=== PATIENT | female | born 1930 | race Caucasian/White ===

== ENCOUNTER 2016-09-25 13:51 | Inpatient (IN) ==
[2016-09-25] MEDS ORDERED: DILAUDID IV ONE (15:35)
[2016-09-25] MEDS ORDERED: ZOFRAN IV ONE (15:35)
[2016-09-25] MEDS ORDERED: NORCO-7.5 PO ONE (15:43)
--- NOTE | 2016-09-25 16:49 | Diag Imaging Result Doc PS360 ---
EXAM: PELVIS W/O CONTRAST INDICATION: fall TECHNIQUE: COMPARISON: None. FINDINGS: The bones are osteopenic. There are fractures involving the superior and inferior pubic rami on the left with mild displacement. There is a subtle nondisplaced fracture involving the left sacral ala. There is no discrete femoral fracture. Review of the surrounding soft tissues reveals diverticulosis coli and atherosclerotic disease. IMPRESSION: Fractures of the inferior and superior pubic rami on the left and a subtle nondisplaced fracture of the left sacral ala. Electronically signed by Álvaro Graham 09/25/2016 4:47 PM
--- NOTE | 2016-09-25 16:52 | Diag Imaging Result Doc PS360 ---
EXAM: HIP 1 VIEW LEFT INDICATION: fall TECHNIQUE: One view COMPARISON: None. FINDINGS: This study is underpenetrated and is limited given that there is only one view. There is questionable mild irregularity at the inferior pubic ramus on the left. I suppose a subtle fracture is possible. No other discrete fractures are identified on this limited single image. The surrounding soft tissues are essentially unremarkable. IMPRESSION: Questionable fracture at the left inferior pubic ramus on this limited study. Electronically signed by Álvaro Graham 09/25/2016 4:50 PM
--- NOTE | 2016-09-25 17:16 | PROVIDER DOCUMENTATION ---
This chart was entered by Jase Washington Scriblaith, acting as scribe for Abdulaziz Gruber MD. HPI-Musculoskeletal Pain/Inj - GENERAL Chief Complaint: Hip Pain Stated Complaint: FALL Time Seen by Provider: 09/25/16 14:15 Source: patient, family - HX OF PRESENT ILLNESS-MUSKULOSKELTAL Nature of Presenting Problem: pt is a 86 y/o F that presents post fall last pm with left hip pain and pain and difficulty ambulating. Denies any other injury. Quality of Pain: reports: cramping Severity in ED: moderate Onset/Duration: abrupt, last night Timing: still present, constant Modifying Factors: worse with: movement, palpation Locality of Occurance: Home Similar Symptoms Previously?: No Recently seen or treated by another doctor?: No - FALL INJURY Location of Pain/Injury: reports: lower extremity (left hip) Pain Radiation: reports: no radiation Reason for Fall: reports: lost balance Symptoms prior to fall:: reports: none Loss of Consciousness: no loss of consciousness Injury Associated Symptoms: reports: joint pain, unable to bear weight, trouble walking. denies: back/neck pain, dizziness, shortness of breath Review of Systems - Adult - REVIEW OF SYSTEMS - ADULT Constitutional: reports: no symptoms reported Eyes: denies: decreased vision, blurred vision, double vision Ears, Nose, Mouth & Throat: denies: ear discharge, epistaxis, mouth/dental pain , mouth swelling Cardiovascular: denies: chest pain, palpitations, syncope Respiratory: denies: hemoptysis, shortness of breath Gastrointestinal: denies: abdominal pain, nausea, vomiting Genitourinary: reports: no symptoms reported Musculoskeletal: reports: joint pain. denies: back pain, neck pain Integumentary: reports: no symptoms reported Neurological: reports: no symptoms reported Psychiatric: reports: no symptoms reported Endocrine: reports: no symptoms reported Hematologic/Lymphatic: reports: no symptoms reported Allergic/Immunologic: reports: no symptoms reported All Other Systems: Reviewed and Negative Past History - Adult - PAST MEDICAL HISTORY-ADULT Review of Records: reports: Old Records Reviewed, Nursing Assessment Review, Medications Reviewed Endocrine/Immune: reports: thyroid disorder - PRIOR SURGERIES/PROCEDURES Surgical/Procedure History: reports: hysterectomy - IMMUNIZATION STATUS Childhood Immunizations: See Nurse Assessment Flu Vaccine: See Nurse Assessment - FAMILY HISTORY Family History: reviewed, not pertinent - SOCIAL HISTORY Smoking: non-smoker Living Situation: family Physical Exam-Injury Related - Physical Exam-Injury Related Initial Vital Signs Reviewed: Yes General Appearance: alert, no apparent distress Eyes: PERRL/EOMI, pink conjunctivae Head, Ears, Nose, Mouth & Throat: normocephalic/atraumatic, moist mucous membranes, normal ENT inspection Neck: full range of motion, normal inspection Respiratory: chest non-tender, lungs clear, normal breath sounds, no respiratory distress, no accessory muscle use Cardiovascular: regular rate, rhythm, no edema, no murmur Abdominal Exam: normal bowel sounds, non tender, soft Extremity: normal capillary refill, tenderness (left hip), other (decrease ROM to left leg) Integumentary: normal color, warm/dry Neurologic: seasonal sales associate II-XII nml as tested, no motor/sensory deficits Psych/Mental Status: normal mood/affect, normal thought content, normal thought process, oriented x 3 Progress - PLAN OF CARE/RESULTS Progress/Plan/Lab Results: Vital Signs - 8 hr 09/25/16 14:12 Temperature 98.7 F Pulse Rate 94 H Respiratory Rate 18 Blood Pressure 180/97 O2 Sat by Pulse Oximetry 92 L Orders Category Date Time Status HIP 1 VIEW LEFT [RAD] Stat Exams 09/25/16 14:39 Completed PELVIS W/O CONTRAST [CT] Stat Exams 09/25/16 16:15 Completed AMYLASE [CHEM] Stat Lab 09/25/16 17:08 Uncollected CBC WITH DIFF [HEME] Stat Lab 09/25/16 17:08 Uncollected COMPREHENSIVE METABOLIC PANEL [CHEM] Stat Lab 09/25/16 17:08 Uncollected LIPASE [CHEM] Stat Lab 09/25/16 17:08 Uncollected Hydrocodone/APAP 7.5 mg/325 mg [Lanark-7.5] Med 09/25/16 15:43 Discontinued 1 each PO NOW ONE Hydromorphone [Dilaudid] Med 09/25/16 15:35 Discontinued 0.5 mg IV NOW ONE Ondansetron [Zofran] Med 09/25/16 15:35 Discontinued 4 mg IV NOW ONE EKG [EKG] Stat Ther 09/25/16 17:08 Ordered 1616-ct of pelvis ordered - XRAY 1 XRAY: Left XRAY Study: Hip Impression: Abnormal XRAY Interpretation: ? fx left pubic rami - CT/MRI 1 CT Study: Pelvis Impression: Abnormal CT Results: fx of inferior and superior rami on Left and subtle fx L sacral ala - CONSULTS/PCP/HOSPITALIST Notification #1 *Consult/PCP/Hospitalist*: Time Discussed: 17:10 Consult Disposition: Will see in ED, Admit Departure - Departure Date of Disposition Decision: 09/25/16 Time of Disposition Decision: 17:11 DIAGNOSIS: Fall, Pelvic fracture, Intractable pain Disposition: ADMITTED INPATIENT 09 Certified Medical Emergency: Emergent Condition: Stable Referrals and Follow-Ups: Rupesh Mccallum MD [Primary Care Provider] - - Critical Care Note This patient required my direct & personal management of CC.: No Attestation - Physician/ RICHA Attestation The physician spent face to face time with patient:: Yes Advanced Practice Provider documentation review:: The physician spent face to face time with this patient and agrees with all MLP documentation, treatment, and medical decision making by the MLP. See provider notes for further information. This chart was documented by the indicated scribe, (Jase Washington, Zak) and accurately reflects the services I performed and decisions made by me, Abdulaziz Gruber MD, as attested by the provider's signature.
[2016-09-25 17:53] LABS: ALLEN TEST YES; BE -2.1 mmoll (-3.0-3.0); BLOOD TYPE ARTERIAL; DRAW SITE L RADIAL; METHB 1.4 % (0.0-1.5); MODALITY ROOM AIR; O2(CT) 17.2 mL/dL (15.0-23.0); PCO2(98.6) 27 mmHg (35-45); PO2(98.6) 61 mmHg (60-100); SAMPLE BLOOD; SAO2 95.9 % (95.0-100.0); THB 13.2 g/dL (11.5-17.4); pH(98.6) 7.48 (7.35-7.45)
[2016-09-25 18:05] LABS: HEMATOCRIT 36.2 % (37.0-47.0); HEMOGLOBIN 12.6 g/dL (12.0-16.0); MCH 29.7 PG (27-31); MCHC 34.8 g/dL (33-37); MCV 85.4 FL (81-99); MPV 10.1 FL (7.4-10.4); RBC 4.24 XMIL (4.2-5.4)
[2016-09-25 18:29] LABS: AGAP 12; ALBUMIN 3.8 g/dL (3.5-5.0); ALKALINE PHOSPHATASE 125 U/L (32-104); BUN 9 mg/dL (8-22); CHLORIDE 91 mmol/L (98-107); COSMO 255; GOT 14 U/L (10-30); GPT 10 U/L (10-36); POTASSIUM 3.6 mmol/L (3.5-5.1); SODIUM 127 mmol/L (136-145); TCO2 24 mmol/L (25-35); TOTAL BILIRUBIN 0.63 mg/dL (0.20-1.00); TOTAL PROTEIN 7.2 g/dL (6.3-8.3)
--- NOTE | 2016-09-25 18:57 | HISTORY AND PHYSICAL ---
CHIEF COMPLAINT: Hip pain. HISTORY OF PRESENT ILLNESS: Ms. Ella Pérez is an 86-year-old lady with a history of mild cognitive impairment and hypothyroidism who is well known to me. Last night she fell while trying to use the bedside commode. She was with complaint of left hip pain. X-ray demonstrated a questionable fracture at the left inferior pubic ramus. A CT scan of the pelvis demonstrated fractures of the inferior and superior pubic ramus on the left and nondisplaced fracture of the left sacral ala. The family reported that over the course of the day she had increasing pain and was unable to perform any weightbearing exercises. She was unable to ambulate or get out of bed independently. PAST MEDICAL HISTORY: As above. PAST SURGICAL HISTORY: Hysterectomy. ALLERGIES: No known drug allergies. FAMILY HISTORY: Noncontributory. SOCIAL HISTORY: She denies the use of tobacco, alcohol, or illicit drugs. MEDICATIONS: Levothyroxine 50 mcg daily, folic acid 1 mg daily. REVIEW OF SYSTEMS: General: She denies any recent weight gain or weight loss. HEENT: She will wears glasses. She is hard of hearing. CARDIOVASCULAR: No chest pain, palpitations, or anginal equivalents. Pulmonary: No shortness of breath, PND or orthopnea. GI: No reflux, dysphagia, melena, hematochezia, change in bowel habits, or rectal bleeding. Endocrine: No polyuria, no polydipsia. No cold or heat intolerance. Skin: No easy bruisability. : No leakage of urine with coughing or laughing. Neurologic: No migraines or seizures. PHYSICAL EXAMINATION: GENERAL: This is an elderly, frail. 86-year-old, lady in no apparent distress. VITAL SIGNS: Temperature 98.7 degrees, pulse 94, respiratory rate 18, blood pressure 180/97, O2 saturation 92% on room air. HEENT: Fundi with sharp discs and vessels. Pupils equal, round, reactive to light. Extraocular eye movements intact. TMs without bullae. NECK: Supple. No masses, JVD or bruits. CARDIOVASCULAR: Regular rate and rhythm. LUNGS: Clear. ABDOMEN: Soft, nontender, with active bowel sounds. No hepatosplenomegaly. No abdominal bruits. EXTREMITIES: Without edema. NEUROLOGIC: She is alert and easily arousable. She is oriented to name, place, and time. She answers questions appropriately. She has normal tone and strength in the upper lower extremities. DTRs are 2+ and symmetric in the upper extremities. Cranial nerves are intact. ASSESSMENT AND PLAN: 1. Multiple pelvic fractures. She is unable to perform any weightbearing activity. I am going to admit her to [facility] for pain management. I will begin morphine 1 mg with Phenergan 12.5 mg IV q.3 hours p.r.n. pain. We will place a Ibrahim catheter. The fact that she has pelvic fractures would suggest that she has underlying osteoporosis. We will check renal function and serum calcium to see if she potentially would benefit from medicines like Forteo. We certainly could use medicines like Miacalcin to speed the healing of the fractures. We will consult Orthopedic Surgery in the morning for evaluation, we will consult Physical Therapy. 2. Hypothyroidism. Clinically she is euthyroid. We will continue levothyroxine 50 mcg daily. Given the patient's clinical presentation and comorbid conditions, it is evident that she is incapable of performing weightbearing exercises. It would not be safe to attempt to treat her as an outpatient. I believe that she will be in the hospital for at least 2 midnights and I will, therefore, place her in inpatient status. We will consult social media director to look for rehab bed placement. We will begin Lovenox 40 mg subcutaneously daily for DVT prophylaxis. cc: Lyndon Mccallum MD
[2016-09-25] MEDS ORDERED: SODIUM CHLORIDE 0.9% INJ PRN (19:34)
[2016-09-25] MEDS ORDERED: ZOFRAN IV PRN (19:34)
[2016-09-25] MEDS: LOVENOX SUBQ SCH (20:09)
[2016-09-25] MEDS: SEPTRA DS PO SCH (20:09)
[2016-09-26] MEDS: TYLENOL PO PRN ×2 (07:54→13:40)
[2016-09-26] MEDS: SYNTHROID PO SCH (07:54)
--- NOTE | 2016-09-26 08:46 | PROGRESS NOTE ---
DATE: 09/26/2016 SUBJECTIVE: Ms. Pérez was admitted to [facility] with multiple pelvic fractures. There are fractures involving the superior and inferior pubic rami on the left with mild displacement. There is a subtle nondisplaced fracture involving the left sacral ala. There is no discrete femoral fracture. The bones are osteopenic. She only has significant pelvic pain when she attempts to shift in bed. She is with complaint of nausea and vomiting this morning. The family reports that she has been having increasing reflux and sour brash and burping after meals. OBJECTIVE: Temperature 98.3 degrees, pulse 81, respirations 16, BP 154/79. CV: Regular rate and rhythm. Lungs clear. Abdomen soft, nontender, with active bowel sounds. ASSESSMENT AND PLAN: 1. Multiple pelvic fractures. We will consult Orthopedic Surgery for evaluation. We will consult Physical Therapy to begin range of motion exercises. We will arrange for social economist to obtain rehab placement. We will continue the Dilaudid. We will continue the morphine as needed for pain. I will check a serum calcium, PTH, and a protein electrophoresis. I suspect the fractures are related to osteopenia rather than a true pathologic fracture. 2. Nausea and vomiting. I will give her normal saline at 50 mL/hour x1 L and begin pantoprazole 40 mg IV daily. We will treat the nausea on a p.r.n. basis with Zofran. cc: Lyndon Mccallum MD
--- NOTE | 2016-09-26 09:42 | Diag Imaging Result Doc PS360 ---
EXAM: CHEST-PORTABLE HISTORY: hypoxia TECHNIQUE: Portable flat AP COMPARISON: None. FINDINGS: The lungs are well expanded. Mild increased interstitial markings. No consolidation. No pleural effusions identified. The heart is mildly prominent. IMPRESSION: Questionable tiny infiltrates or pulmonary edema. Follow-up PA and lateral recommended. Electronically signed by Marbin Arce 09/26/2016 9:40 AM
[2016-09-26] MEDS: PROTONIX IV SCH ×2 (10:46→15:37)
[2016-09-26] MEDS: FOLIC ACID PO SCH (10:46)
[2016-09-26] MEDS: SODIUM CHLORIDE 0.9% INJ SCH ×2 (10:46→15:37)
[2016-09-26] MEDS: SEPTRA DS PO SCH ×2 (10:51→20:30)
--- NOTE | 2016-09-26 11:36 | CONSULTATION ---
DATE OF CONSULTATION: 09/26/2016 REASON FOR CONSULTATION: Pubic rami fracture. HISTORY OF PRESENT ILLNESS: Ms. Pérez is an 86-year-old white female who comes in after sustaining a fall 2 nights ago when she was trying to use her bedside commode. She was brought to the emergency department and images were obtained which revealed left superior and inferior pubic rami fracture and a left sacral ala fracture, and we were asked to further evaluate. PAST MEDICAL HISTORY: Mild cognitive impairment, hypothyroidism, and UTIs. PAST SURGICAL HISTORY: Hysterectomy. ALLERGIES: No known drug allergies. FAMILY HISTORY: Noncontributory. MEDICATIONS: Levothyroxine and folic acid. SOCIAL HISTORY: She denies the use of tobacco, alcohol, or illicit drugs. PRIMARY CARE PROVIDER: Dr. Mccallum. REVIEW OF SYSTEMS: A 10-point review of systems was performed and the patient answered all negative except for what was listed in the history of present illness. PHYSICAL EXAMINATION: General: The patient is awake. She is lying in bed. She is alert and oriented, and able to answer questions appropriately. HEENT: Head is normocephalic, atraumatic. Neck: Supple. Heart: Regular rate and rhythm. Lungs: Clear to auscultation bilaterally. Abdomen: Round and nondistended. Bowel sounds are present. It is nontender. Neurologic: She discerned soft touch to the affected extremity. Musculoskeletal: Left hip: She has some pain with palpation of the left hip, but there is no deformity or ecchymosis noted. She has good range of motion of her hip and her legs are neurovascularly intact bilaterally. She has 2+ pedal pulses bilaterally. ASSESSMENT: Left superior and inferior pubic rami fracture and left sacral ala fracture, which are nondisplaced. PLAN: Her fractures are in a stable fracture pattern and they are nondisplaced , so there is no surgical intervention necessary. We will have her weightbearing as tolerated and will have pain control as necessary. Dictated by PAYAM Sotelo for Ricky Bedolla MD cc: PAYAM Sotelo MD M. Neel Roberts, MD [facility]OSPITALTracee
[2016-09-26] MEDS: MORPHINE IV PRN (15:34)
[2016-09-26] MEDS: NS 1,000 ML IV SCH (15:36)
[2016-09-26] MEDS: LOVENOX SUBQ SCH (20:30)
[2016-09-27] MEDS: MORPHINE IV PRN ×4 (02:44→22:14)
[2016-09-27] MEDS: SYNTHROID PO SCH (06:42)
--- NOTE | 2016-09-27 09:33 | Diag Imaging Result Doc PS360 ---
CHEST-PORTABLE - 09/27/2016 INDICATION: HYPOXIA TECHNIQUE: COMPARISON: 09/25/2016 FINDINGS: The patient is significantly rotated. There is mild cardiomegaly and pulmonary vascular congestion. No definite infiltrates. IMPRESSION: Cardiomegaly and pulmonary vascular congestion. Electronically signed by Case Maravilla 09/27/2016 9:31 AM
[2016-09-27] MEDS ORDERED: LASIX IV ONE (09:59)
[2016-09-27 10:16] LABS: HEMOGLOBIN 11.5 g/dL (12.0-16.0); MCHC 34.8 g/dL (33-37); MCV 86.2 FL (81-99); MPV 10.2 FL (7.4-10.4); RBC 3.83 XMIL (4.2-5.4)
[2016-09-27 10:22] LABS: AGAP 11; BUN 12 mg/dL (8-22); CALCIUM 8.6 mg/dL (8.8-10.2); CHLORIDE 93 mmol/L (98-107); COSMO 250; POTASSIUM 4.3 mmol/L (3.5-5.1); SODIUM 124 mmol/L (136-145); TCO2 20 mmol/L (25-35)
--- NOTE | 2016-09-27 11:01 | PROGRESS NOTE ---
DATE: 09/27/2016 SUBJECTIVE: Ms. Pérez fell and sustained multiple pelvic fractures. She has pelvic pain when she shifts in bed or tries to perform any sort of physical activity. Dr. Ethan Bedolla saw her in consultation and felt that she was not a candidate for surgery. CT scan demonstrated osteopenia of the bones, but by definition she has osteoporosis because of the fractures. We did perform a workup to rule out causes of bone loss. She did have a normal serum calcium. Her PTH was elevated at 78. Her vitamin D hydroxy level was deficient at 19.8. She has taken Evista and Fosamax in the past. She is awake and easily arousable. She is tolerating a bland diet without nausea, vomiting, or abdominal pain. OBJECTIVE: Vital signs: Temperature 97.6 degrees, Pulse 84, respiratory rate 16, blood pressure 122/86. Cardiovascular: Regular rate and rhythm. Lungs: Clear. Abdomen: Soft, nontender, with active bowel sounds. ASSESSMENT AND PLAN: 1. Multiple pelvic fractures. We will begin Miacalcin 200 international units 1 spray to the nose daily and alternate sides. We will continue physical therapy. We will consult [facility] for rehab placement at [facility]. 2. Secondary hyperparathyroidism. She does have an elevated PTH of 78. Her vitamin D level is deficient. Serum calcium is normal. I will began vitamin D 2000 units p.o. daily and supplemental calcium. I will recheck a PTH, serum calcium, and 25-hydroxyvitamin D level in 3 months. cc: Lyndon Mccallum MD
[2016-09-27] MEDS: FOLIC ACID PO SCH (11:24)
[2016-09-27] MEDS: SEPTRA DS PO SCH ×2 (11:25→21:51)
[2016-09-27] MEDS: PROTONIX IV SCH ×2 (11:26→11:29)
[2016-09-27] MEDS: SODIUM CHLORIDE 0.9% INJ SCH ×2 (11:26→11:28)
[2016-09-27] MEDS: FORTICAL NAS SCH (11:28)
[2016-09-27] MEDS: NS 1,000 ML IV SCH (15:40)
[2016-09-27] MEDS: VITAMIN D PO SCH (15:40)
[2016-09-27] MEDS: CALTRATE 600 PO SCH ×2 (15:48→21:51)
[2016-09-27] MEDS: LOVENOX SUBQ SCH (21:51)
[2016-09-28] MEDS: MORPHINE IV PRN ×3 (01:33→22:10)
[2016-09-28] MEDS: PHENERGAN IV PRN ×2 (01:33→08:32)
[2016-09-28] MEDS: SYNTHROID PO SCH (06:37)
[2016-09-28] MEDS: PROTONIX IV SCH (08:31)
[2016-09-28] MEDS: CALTRATE 600 PO SCH ×2 (08:32→22:10)
[2016-09-28] MEDS: SODIUM CHLORIDE 0.9% INJ SCH (08:32)
[2016-09-28] MEDS: FORTICAL NAS SCH (08:32)
[2016-09-28] MEDS: VITAMIN D PO SCH (08:33)
[2016-09-28] MEDS: FOLIC ACID PO SCH (08:33)
[2016-09-28] MEDS: SEPTRA DS PO SCH ×2 (08:34→22:10)
--- NOTE | 2016-09-28 10:12 | PROGRESS NOTE ---
DATE: 09/28/2016 SUBJECTIVE: Ella Pérez is an 86-year-old female who had a fall and has left superior and inferior rami fractures and a nondisplaced sacral ala fracture. She has no new complaints. Her pain is improving and is much more tolerable. OBJECTIVE: Genera: She is a well-developed, well-nourished female. She is alert, oriented, and cooperative with the exam. Musculoskeletal: Her pelvis is stable. Her leg is neurovascularly intact. ASSESSMENT: Stable left pelvis fracture. PLAN: She will be found transferred to rehab the 1st part of the week per Dr. Mccallum. I will see her back in the office in 1 month for followup x-rays. I will be available as needed. cc: MD Lyndon Falk MD
[2016-09-28] MEDS: NS 1,000 ML IV SCH (13:30)
--- NOTE | 2016-09-28 13:44 | PROGRESS NOTE ---
DATE: 09/28/2016 SUBJECTIVE: Mrs. Pérez was admitted to [facility] following a fall. A CT scan of the pelvis demonstrated fractures of the inferior and superior pubic rami on the left and a subtle nondisplaced fracture of the left sacral ala. She continues to have persistent pain with movement in bed or attempting to sit up or rotating. She does not have any pain at rest. As part of the workup for the pelvic fractures, she was noted to have a normal serum calcium. A PTH was elevated at 78. Her vitamin D hydroxy level was deficient at 19.8. This morning, Mrs. Pérez is more sleepy and drowsy and difficult to arouse. Upon waking up, she could tell me her name and that she was at [facility]. She had gotten morphine at 2 o'clock this morning and had been sleeping since that time. OBJECTIVE: Vital signs: Temperature 98.0 degrees, pulse 119, respiratory rate 14, BP 107/72. CV: Tachycardic, regular S1, S2. Lungs: Clear. Abdomen: Soft, nontender, with active bowel sounds. LABORATORY DATA: CBC demonstrated a white count of 6.62, hemoglobin 11.5, hematocrit 33 and a platelet count of 202,000. BMP demonstrated the following. Sodium 124, potassium 4.3, chloride 93, CO2 20, BUN 12, creatinine 0.8. ASSESSMENT AND PLAN: 1. Multiple pelvic fractures secondary to secondary hyperparathyroidism. We will continue physical therapy and are awaiting rehab placement. Dr. Bedolla did not feel that she was a surgical candidate. We will continue aggressive management of the underlying hyperparathyroidism with vitamin BD supplementations, supplemental calcium and Miacalcin. 1. Hyponatremia. I am going to check a serum osmolality, urine osmolality and a urine sodium. Given her tachycardia and lower blood pressure, she appears to be somewhat hypovolemic. I will begin normal saline at 75 mL/hour and I will recheck a serum sodium later this afternoon. cc: Lyndon Mccallum MD
[2016-09-28] MEDS: LOVENOX SUBQ SCH (22:10)
[2016-09-29] MEDS: NS 1,000 ML IV SCH (04:29)
[2016-09-29 06:22] LABS: AGAP 12; BUN 14 mg/dL (8-22); CALCIUM 7.8 mg/dL (8.8-10.2); CHLORIDE 96 mmol/L (98-107); COSMO 259; POTASSIUM 4.5 mmol/L (3.5-5.1); SODIUM 129 mmol/L (136-145); TCO2 21 mmol/L (25-35)
[2016-09-29] MEDS: SYNTHROID PO SCH (06:34)
[2016-09-29] MEDS ORDERED: LASIX IV ONE (08:57)
--- NOTE | 2016-09-29 09:15 | PROGRESS NOTE ---
DATE: 09/29/2016 SUBJECTIVE: Ms. Pérez seems much more alert and interactive this morning. Her serum sodium has jumped from 124-129. Her chest x-ray showed a small amount of interstitial edema. No lung malignancies were noted. We gave her additional Lasix and her serum sodium has jumped from 124- 129. She seems much more alert this morning. She continues with pelvic pain with any sort of movement. She is making slow progress with physical therapy. OBJECTIVE: Vital Signs: Temperature 97.8 degrees, pulse 88, respirations 14, BP 150/73. CV: Regular rate and rhythm. Lungs: Clear. Abdomen: Soft, nontender, with active bowel sounds. ASSESSMENT AND PLAN: 1. Pelvic fractures. We will continue pain management and physical therapy. We are awaiting a intermediate rehab bed at [facility]. 2. Secondary hyperparathyroidism. We will continue supplemental calcium and vitamin D, and recheck a vitamin D and PTH in 3 months. 3. Hyponatremia. I believe that she was mildly volume overloaded. I do not believe that she has syndrome of inappropriate antidiuretic hormone secretion. Her urine sodium was 96. The urine osmolality was 95. We will continue salt and fluid restricted diet and give her additional Lasix. I will recheck a BMP in the morning. cc: Lyndon Mccallum MD
[2016-09-29] MEDS: FORTICAL NAS SCH (09:26)
[2016-09-29] MEDS: CALTRATE 600 PO SCH ×2 (09:27→20:16)
[2016-09-29] MEDS: SEPTRA DS PO SCH ×2 (09:27→20:17)
[2016-09-29] MEDS: VITAMIN D PO SCH (09:27)
[2016-09-29] MEDS: PROTONIX IV SCH (09:27)
[2016-09-29] MEDS: FOLIC ACID PO SCH (09:28)
[2016-09-29] MEDS: SODIUM CHLORIDE 0.9% INJ SCH (09:28)
[2016-09-29] MEDS: TYLENOL PO PRN ×2 (10:20→20:17)
[2016-09-29] MEDS: LOVENOX SUBQ SCH (20:17)
[2016-09-30] MEDS: SYNTHROID PO SCH ×2 (05:55→06:26)
[2016-09-30 06:31] LABS: AGAP 12; BUN 12 mg/dL (8-22); CALCIUM 8.3 mg/dL (8.8-10.2); CHLORIDE 91 mmol/L (98-107); COSMO 251; POTASSIUM 4.1 mmol/L (3.5-5.1); SODIUM 125 mmol/L (136-145); TCO2 22 mmol/L (25-35)
[2016-09-30] MEDS ORDERED: SALINE LOCK IV FLUID XX ONE (08:39)
[2016-09-30] MEDS: FOLIC ACID PO SCH (08:53)
[2016-09-30] MEDS: PROTONIX IV SCH (08:53)
[2016-09-30] MEDS: FORTICAL NAS SCH (08:53)
[2016-09-30] MEDS: CALTRATE 600 PO SCH ×2 (08:53→21:38)
[2016-09-30] MEDS: SEPTRA DS PO SCH (08:53)
[2016-09-30] MEDS: SODIUM CHLORIDE 0.9% INJ SCH (08:53)
[2016-09-30] MEDS: VITAMIN D PO SCH (08:53)
--- NOTE | 2016-09-30 10:15 | PROGRESS NOTE ---
DATE: 09/30/2016 SUBJECTIVE: Ms. Pérez was admitted to [facility] with multiple pelvic fractures. She is making slow response with nonweightbearing exercises with physical therapy. Physical therapy saw her on 09/29/2016. She was noted to have moderate assist with transfers. She could not tolerate even weightbearing exercises. On admission to the hospital, she was noted to have hyponatremia. Her serum sodium was 124. Her chest x-ray showed increased interstitial edema. We diuresed her with Lasix. Her serum sodium increased to 129. Her serum sodium this morning was 125. Urine studies, given that she seemed to be mildly volume overloaded, were not consistent with SIADH. She does have some baseline confusion. Her family reports that she is nearly back to her baseline neurologically. She has some confusion and disorientation. There have been no seizure activity. OBJECTIVE: Vital Signs: Temperature 98.1 degrees, pulse 97, respirations 20, BP 146/77. CV: Regular rate and rhythm without murmur. Lungs clear. Abdomen soft, nontender, with active bowel sounds. ASSESSMENT AND PLAN: 1. Pelvic fractures. We will continue nonweightbearing physical therapy and pain management. She will need short-term rehab, and they do have a bed at [facility] today. We felt that the etiology of the fractures was secondary hyperparathyroidism. She had a normal calcium. Her vitamin D was low. Her PTH was elevated. We will continue supplemental calcium and vitamin D and recheck a vitamin D level and PTH as an outpatient in 3 months. 2. Hyponatremia. She seems to be more euvolemic today. Her serum sodium has dropped from 129- 125. I am going to place her on salt and fluid restricted diet. I am going to recheck urine studies to screen for SIADH. If her urine studies are still abnormal, we will begin Samsca and consult nephrology. cc: Lyndon Mccallum MD
[2016-09-30] MEDS: TYLENOL PO PRN ×2 (11:15→19:55)
[2016-09-30] MEDS ORDERED: SAMSCA PO ONE (12:42)
--- NOTE | 2016-09-30 13:24 | PROGRESS NOTE ---
DATE: 09/30/2016 Mrs. Pérez has persistent hyponatremia. Clinically, she appears euvolemic. Her serum sodium was 127. Her urine osmolality was 454, urine sodium was 107, plasma osmolality was 255. 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 We will place her on a salt and fluid restricted diet and begin Samsca 15 mg p.o. x1 dose today. I will recheck a BMP in the morning. We will consult Dr. Arango. cc: Lyndon Mccallum MD
[2016-09-30 15:32] LABS: FREE T4 1.3 ng/dL (0.93-1.70)
--- NOTE | 2016-09-30 16:39 | CONSULTATION ---
DATE OF CONSULTATION: 09/30/2016 REASON FOR ADMISSION: Recent fall with hip pain. REASON FOR CONSULTATION: Hyponatremia. CONSULTING PHYSICIAN: Dr. Mccallum. HISTORY OF PRESENT ILLNESS: Ms. Pérez is an 86-year-old, white female with a history of mild cognitive impairment with hypothyroidism who resides with her daughter. Her daughter stated that she had fallen while trying to use the bedside commode and started complaining of left hip pain. X-ray upon evaluation in the emergency department indicated a fracture of the left inferior pubic ramus. CT scan of the pelvis demonstrated multiple fractures and nondisplaced fracture of the left sacral iliac. Family reported over the course several days she has had increasing pain, was unable to perform any weightbearing exercises and was subsequently unable to ambulate and get in and out of bed independently. She was brought to [facility] and is currently hospitalized and has further evaluation at which time she was found to have a initial sodium of 127. We have gone back and evaluated. The patient does run a low sodium of 133 back in 2012. Subsequently, it was also noted after talking to her daughter that patient had a urinary tract infection and had been started on Bactrim DS. She had been on this medication for 4 days. She had also increased her fluid intake to help with her urinary tract infection for flushing. She currently denies chest pain. She has no increased work of breathing. She remains confused to most recent events. She is alert to person. Daughter reports no fever. No chills. PAST MEDICAL HISTORY: Cognitive impairment. Hypothyroidism. Recent left hip fracture. PAST SURGICAL HISTORY: Hysterectomy. FAMILY HISTORY: Noncontributory. SOCIAL HISTORY: She lives with her daughter. She denies any tobacco, alcohol or illicit drug use. CURRENT ALLERGIES: No known drug allergies. MEDICATIONS ARE: Folic acid, and levothyroxine. REVIEW OF SYSTEMS: Times 10 with pertinent positives listed above in the HPI. VITAL SIGNS: Her most recent vital signs are temperature 98.1 degrees, blood pressure 146/77, heart rate 97, respirations 20. She is on room air. Last recorded saturation 95%. She has had 1150 in. She has had 1500 out per Ibrahim catheter. LABS: Sodium 125, potassium 4.1, chloride 91, CO2 22, BUN 12, creatinine 0.8, glucose 91. Anion gap 12, calcium 8.3. White count 6.62, hemoglobin 11.5, hematocrit 33, platelet count 202,000 and this was on the 24th. Patient has had an SPEP that was drawn on admission. It is negative. Urine osmolality is elevated along with urine sodium. PHYSICAL EXAMINATION: General: This is an elderly white female 86 years old. She is in no acute distress. Skin: Warm and dry. HEENT: Normocephalic, atraumatic. Conjunctiva is pale. She has ED. Mucous membranes are dry. Neck: Supple. Trachea midline. No JVD. Cardiovascular: She is regular rate and rhythm. She is without murmur or gallop. Lungs: Clear to auscultation anteriorly. Equal excursion. She continues on room air. Abdomen: Soft, round , nontender. Positive bowel sounds. Extremities: Without edema. No clubbing or cyanosis. Neurological: Patient is alert to person. She is confused to place and time and most recent events. Her daughter is at her bedside. She has limited movement of her lower extremities secondary to pelvic fractures. ASSESSMENT AND PLAN: Hyponatremia. This appears to be slightly chronic in regards with we have not found a sodium greater than 133, since 2014. The patient has been on Septra DS. We will hold this medication secondary to possibly causing SIADH syndrome. We will restrict her free water tomorrow morning after 24 hours of being on Samsca. Otherwise we have encouraged her daughter to give her liquids at her request. We will order labs for 12 hours after an initial dose of Samsca with restrictions to call if less than 118 or greater than 2 points above her last sodium level drawn this a.m. We will check labs in the morning. I would like to thank you for allowing us to follow with this patient. Seen, data reviewed, discussed with Ace Haddad on 09/30/16. I agree with the above assessment and plan of care. rg Dictated by JERMAIN Franco for Wallace Arango MD cc: JERMAIN Franco MD M. Neel Roberts, MD [facility] HOSPITALTracee
[2016-09-30] MEDS: MORPHINE IV PRN (19:55)
[2016-09-30] MEDS: LOVENOX SUBQ SCH (19:56)
[2016-10-01 07:46] LABS: AGAP 14; ALBUMIN 3.1 g/dL (3.5-5.0); BUN 13 mg/dL (8-22); CALCIUM 8.2 mg/dL (8.8-10.2); CHLORIDE 95 mmol/L (98-107); COSMO 261; POTASSIUM 4.6 mmol/L (3.5-5.1); SODIUM 130 mmol/L (136-145); TCO2 21 mmol/L (25-35)
[2016-10-01] MEDS: SYNTHROID PO SCH (07:51)
[2016-10-01] MEDS: VITAMIN D PO SCH (08:23)
[2016-10-01] MEDS: FOLIC ACID PO SCH (08:24)
[2016-10-01] MEDS: PROTONIX IV SCH (08:24)
[2016-10-01] MEDS: SODIUM CHLORIDE 0.9% INJ SCH (08:24)
[2016-10-01] MEDS: FORTICAL NAS SCH (08:24)
[2016-10-01] MEDS: CALTRATE 600 PO SCH (08:24)
[2016-10-01 10:17] VITALS: BP 116/68
--- NOTE | 2016-10-01 10:22 | DISCHARGE SUMMARY ---
ADMISSION DATE: 09/25/2016 DISCHARGE DATE: 10/01/2016 DISCHARGE DIAGNOSES: 1. Fractures of the inferior and superior pubic rami on the left and a subtle nondisplaced fracture of the left sacral ala. 2. Secondary hyperparathyroidism. 3. Primary hypothyroidism. 4. Mild cognitive impairment. 5. 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 6. Antibiotic induced dermatitis. 7. No Code Blue level 1. DISCHARGE INSTRUCTIONS: 1. The patient will be transferred via ambulance to [facility] in order to undergo short-term rehab. 2. Activity as tolerated. 3. Healthy heart diet with 1500 mL fluid restriction. MEDICATIONS: Caltrate 600 p.o. b.i.d., Miacalcin 200 International Units, 1 spray to the nose daily. Vitamin D3 2000 International Units daily. Levothyroxine 50 mcg daily, folic acid 1 mg daily. Bolckow 5/325 one q.6 hours p.r.n. pain. Medrol Dosepak. PHYSICAL EXAMINATION: General: This is an elderly, frail, 86-year-old, lady in no apparent distress. Vital Signs: She is afebrile. Pulse 63, respirations 18, BP 110/65. Cardiovascular: Regular rate and rhythm. Lungs: Clear. Abdomen: Soft, nontender, with active bowel sounds. HISTORY AND HOSPITAL COURSE: The patient was admitted to [facility] following a fall. CT scan of the pelvis demonstrated multiple pelvic fractures. Dr. Ethan Bedolla was consulted to see the patient and did not feel her to be a candidate for surgery. The patient was admitted for pain control and physical therapy was consulted to see the patient. They initially began nonweightbearing exercises and advanced physical therapy as tolerated. We were gradually able to wean her off the IV morphine and switched her to oral Bolckow with good control of her pain. The CT scan showed that the bones were osteopenic. We did perform a serum protein electrophoresis, which demonstrated no evidence of multiple myeloma. A serum sodium was normal at 9. Her vitamin D was 19. Her PTH was 78. We felt that she had secondary hyperparathyroidism due to the vitamin D deficiency. We began Caltrate 600 +D, we began Caltrate 600 twice daily, vitamin D3 2000 International Units daily and Miacalcin nasal spray to increase the rate of healing. We will recheck a serum calcium, vitamin D and PTH as an outpatient in 3 months. She does have a history of primary hypothyroidism. We had recently increased the dosage of Synthroid to 50 mcg daily within the past month. Her most recent TSH was 5.0 with a free T4 of 1.3. We will continue levothyroxine 50 mcg daily. She was noted to be hyponatremic with a serum sodium of 127. We initially felt that she was potentially a little bit volume overloaded and we diuresed her with Lasix. Serum sodium dropped to 122. Her urine osmolality was 495. Her urine sodium was 96. Plasma osmolality was 265. We placed her on a fluid and salt restricted diet and dosed her with a [address] Arango saw her in consultation. We stopped the Macrodantin which can cause an SIADH type syndrome. With fluid restriction and Samsca, her serum sodium improved to 130. We will continue fluid restrictions at the [facility] and recheck a BMP in 1 week. She does have some degree of chronic hyponatremia. Review of her medical records showed that her serum sodium has typically been in the range of 132-133 since 2015. CODE STATUS: The patient does have a Living Will. She has stated that in the event of a cardiopulmonary arrest that no heroic measures should be undertaken. A No Code Blue Level 1 has been established. cc: Lyndon Mccallum MD
--- NOTE | 2016-10-01 14:59 | PROGRESS NOTE ---
DATE: 10/01/2016 SUBJECTIVE: Ms. Pérez is resting quietly in bed. She remains forgetful, though she remains pleasant and able to assist with exam. Her granddaughter is at her bedside. She denies any chest pain or increased work of breathing. VITAL SIGNS: Her most recent vital signs are temperature 98.1 degrees, blood pressure 110/65, heart rate 62, respirations 18. She is on room air. Last recorded saturation 92-93%. She has had positive p.o. in. It has been greater than 1 L. She has had 1825 out per Ibrahim catheter. LABORATORY DATA: Her most recent labs are sodium 130, potassium 4.6, chloride 95, CO2 21. BUN 13, creatinine 0.8, glucose 97. Calcium 8.2, phosphorus 3.3, albumin 3.1. Anion gap of 14. Patient had a TSH of 5.05. Free T4 1.3. Previous hemoglobin 11.5 on the . PHYSICAL EXAMINATION: This is an 86-year-old elderly white female. She appears frail. She is in no acute distress.Skin: Warm and dry. HEENT: Normocephalic, atraumatic. Conjunctiva is pale pink. She has ED. Mucous membranes moist. Neck: Supple. Trachea midline. No JVD. Cardiovascular: She is regular rate and rhythm. She is without murmur or gallop. Lungs: Clear to auscultation anteriorly. Equal excursion. Abdomen: Round, soft, nontender. Positive bowel sounds. Genitourinary: Adequate urine out. Extremities: She is without edema. No clubbing or cyanosis. Neurological: She is alert to person. ASSESSMENT AND PLAN: Hyponatremia. Patient is close to her routine baseline. She is up to 130 today. Her previous baseline for the last several years has been in the low 130s. No indications for further intervention in regards with Samsca. We have discussed fluid restriction to 1 to 1.5 L with the family in regards with her p.o. intake and to continue to monitor and follow up as an outpatient. I would to thank you for allowing us to follow with this patient. Seen, data reviewed, discussed with Ace Haddad on 10/01/16. I agree with the above assessment and plan of care. rg Dictated by JERMAIN Franco for Wallace Arango MD cc: JERMAIN Franco MD M. Neel Roberts, MD MTDD
== END 2016-10-01 11:03 ==
LOC: SUPCPDRO → ED 13:51 → 4N 18:11 → 3N 09-30 15:02
PROVIDERS: ADMIT Internal Medicine; ATTEND Internal Medicine

== ENCOUNTER 2018-07-30 09:02 | Inpatient (IN) ==
[2018-07-30] MEDS ORDERED: ZOSYN 3.375 GM in NS 50 ML IV SCH (09:30)
[2018-07-30] MEDS ORDERED: LOPRESSOR IV ONE (09:48)
--- NOTE | 2018-07-30 10:14 | Diag Imaging Result Doc PS360 ---
CHEST-1 VIEW - 07/30/2018 INDICATION: SOB/SEPSIS COMPARISON: None FINDINGS: There is significant cardiomegaly and pulmonary vascular congestion. There are ill-defined bilateral infiltrates diffusely mainly in the lung bases. There is probably a trace right pleural effusion. IMPRESSION: Cardiomegaly and pulmonary vascular congestion. Bilateral pulmonary edema and/or pneumonia. Electronically signed by Case Maravilla 07/30/2018 10:12 AM
[2018-07-30] MEDS ORDERED: LOPRESSOR ONE (11:04)
[2018-07-30 11:47] LABS: BASO# 0.01 X1000 (0.0-0.2); BASO% 0.1 % (0.0-0.8); EOS# 0.05 X1000 (0.0-0.7); EOS% 0.3 % (0.0-10.0); HEMATOCRIT 33.7 % (37.0-47.0); HEMOGLOBIN 11.9 g/dL (12.0-16.0); IMM GRAN# 0.05 X1000 (0.0-0.04); IMM GRAN% 0.3 % (0.0-0.5); LYMPH# 0.69 X1000 (1.2-3.4); LYMPH% 3.9 % (20.5-51.1); MCH 28.6 PG (27-31); MCHC 35.3 g/dL (33-37); MONO% 6.8 % (1.7-9.3); MPV 10.6 FL (7.4-10.4); NEUT# 15.71 X1000 (1.4-6.5); NEUT% 88.6 % (42.2-75.2); PLT 192 X1000 (130-400); RBC 4.16 XMIL (4.2-5.4); RDW 14.9 % (11.5-14.5); WBC 17.71 X1000 (4.8-10.8)
[2018-07-30 11:51] LABS: INR 1.03; PROTIME 14.3 Seconds (11.0-16.0)
[2018-07-30 12:11] LABS: LYMPHS 5 % (21-51); MONO 5 % (1-9); SEGS 90 % (42-75)
[2018-07-30 12:35] LABS: AGAP 12; ALBUMIN 3.5 g/dL (3.5-5.0); ALKALINE PHOSPHATASE 109 U/L (32-104); BUN 10 mg/dL (8-22); CALCIUM 8.8 mg/dL (8.8-10.2); CHLORIDE 85 mmol/L (98-107); CK PROFILE 517 U/L (24-173); COSMO 239; CREATININE 0.7 mg/dL (0.5-0.9); ESTIMATED GFR > 60; GLUCOSE 151 mg/dL (70-104); GOT 29 U/L (10-30); GPT 13 U/L (10-36); POTASSIUM 3.8 mmol/L (3.5-5.1); TCO2 20 mmol/L (25-35); TOTAL BILIRUBIN 1.07 mg/dL (0.20-1.00); TOTAL PROTEIN 7.1 g/dL (6.3-8.3)
[2018-07-30 12:37] LABS: SODIUM 117 mmol/L (136-145)
[2018-07-30 13:14] LABS: CK INDEX 1.5 (0.0-2.5); CK-MB 7.94 ng/mL (0.0-5.0)
--- NOTE | 2018-07-30 14:17 | EKG Report ---
Test Performed on : 07/30/2018 09:31:19 AM Test Reason : dyspnea Blood Pressure : / mmHG Vent. Rate : 106 BPM Atrial Rate : 241 BPM P-R Int : 000 ms QRS Dur : 082 ms QT Int : 364 ms P-R-T Axes : 000 -10 077 degrees QTc Int : 483 ms Atrial fibrillation. with rapid ventricular response. Voltage criteria for left ventricular hypertrophy ST & T wave abnormality, consider anterolateral ischemia Abnormal ECG No previous ECGs available Unconfirmed Result
[2018-07-30 15:28] LABS: URINE SOURCE CATH
[2018-07-30] MEDS ORDERED: DUONEB (A & A) INH SCH (15:30)
[2018-07-30 15:31] LABS: BILIRUBIN URINE NEGATIVE (NEGATIVE); BLOOD URINE SMALL (NEGATIVE); COLOR YELLOW; GLUCOSE URINE 500 mg/dL (NEGATIVE); KETONE URINE 10 mg/dL (NEGATIVE); LEUKOCYTES URINE NEGATIVE (NEGATIVE); NITRITE URINE NEGATIVE (NEGATIVE); PROTEIN URINE 100 mg/dL (NEGATIVE); SP GRAVITY URINE 1.018; TURBIDITY URINE CLEAR (CLEAR); URINE BACTERIA NEGATIVE /HPF; URINE RBC <10 /HPF (<10); URINE WBC <10 /HPF (<10); UROBILINOGEN URINE NORMAL (NORMAL)
[2018-07-30 15:38] LABS: UR EPITHELIAL CELLS <10 /HPF (<10)
[2018-07-30] MEDS: LASIX IV SCH (17:53)
[2018-07-30] MEDS: TYLENOL PO PRN (17:53)
[2018-07-30] MEDS: ZOSYN 3.375 GM in NS 50 ML IV SCH (19:50)
--- NOTE | 2018-07-30 22:18 | HISTORY AND PHYSICAL ---
CHIEF COMPLAINT: Shortness of breath. Mrs. Juanis Pérez is an 87-year-old lady with a history of primary hypothyroidism, osteoporosis, and mild cognitive impairment who was transferred to the emergency room at [facility] for evaluation of increasing shortness of breath and increasing work of breathing. According to her family, she gagged multiple times while drinking cold liquids last night. She went to bed, upon waking up this morning, she was diaphoretic, significantly short of breath with increased work of breathing, and in obvious distress. They called 911. Her initial O2 saturation was 65% on room air. She was placed on 100% non-rebreather and her O2 saturations jumped into the low 80s. She was placed on BiPAP and her O2 sats increased to the low 90s. She is with complaint of a persistent cough, pleuritic chest pain with deep inspiration, paroxysms of cough, and increasing shortness of breath. Her chest x-ray demonstrated cardiomegaly and pulmonary vascular congestion. There is bilateral pulmonary edema and pneumonia. She was noted to have a leukocytosis of 17,000. On arrival to the ER, she was noted to have tachycardia with heart rate in the 120s. An EKG demonstrated atrial fibrillation with RVR. She spontaneously converted back to normal sinus rhythm. PAST MEDICAL HISTORY: Primary hypothyroidism, osteoporosis, mild cognitive impairment. PAST SURGICAL HISTORY: Bilateral cataract surgery. ALLERGIES: No known drug allergies. FAMILY HISTORY: Noncontributory. SOCIAL HISTORY: She is a . She lives at home with her daughter. She denies the consumption of alcoholic beverages. MEDICATIONS: 1. Folic acid 1 mg daily. 2. Aspirin 81 mg daily. 3. Levothyroxine 50 mcg daily. REVIEW OF SYSTEMS: Constitutional: She denies any recent weight gain or weight loss. HEENT: She wears glasses. She is hard of hearing. Cardiovascular: See HPI. Pulmonary: See HPI. Gastrointestinal: See HPI. Endocrine: No polyuria, no polydipsia. Skin: No easy bruisability. Genitourinary: No leakage of urine with coughing or laughing. Skin: No easy bruisability. Neuro: No migraines or seizures. Psychiatric: No history of depression. PHYSICAL EXAMINATION: GENERAL: This is an acutely ill-appearing, 87-year-old lady in moderate distress secondary to shortness of breath. VITAL SIGNS: Temperature 97.9 degrees, pulse 106, respiratory rate 25, BP 174/90. HEENT: Fundi with sharp discs and vessels. Pupils equal, round, reactive to light. Extraocular eye movements intact. TMs without bullae. NECK: Supple. No masses, JVD, or bruits. CARDIOVASCULAR: Irregularly irregular. LUNGS: Diminished breath sounds in the bases bilaterally with scattered end-expiratory wheezing. ABDOMEN: Soft, nontender with active bowel sounds. EXTREMITIES: Trace ankle edema. SKIN: No palpable purpura. NEUROLOGIC: Nonfocal. LABS: Various laboratory studies were obtained. A CBC demonstrated white count 17.7, hemoglobin 11.9, hematocrit 33.7, with a left shift. Electrolytes demonstrated the following: Sodium 117, potassium 3.8, BUN 10, creatinine 0.7. Glucose 151. CPK 517, troponin 0.116. Free T4 of 1.84. Urinalysis was unremarkable. A lactate level was 2.7. ASSESSMENT AND PLAN: 1. Acute respiratory failure with hypoxia secondary to aspiration pneumonia and acute congestive heart failure with associated underlying sepsis. Her O2 saturations dropped to 65% on room air. Her O2 saturations are marginal at 90% to 91% on BiPAP. We will continue BiPAP with inspiratory pressure of 12, exploratory of pressure of 6, FiO2 40%, and a respiratory rate of 16. We will begin broad-spectrum antibiotics, including Zosyn 3.375 g IV q.6 hours, and add DuoNeb nebulizer treatments. We will place her on a salt and fluid restricted diet and diurese her with Lasix. Because of the congestive heart failure and transient atrial fibrillation, we will check serial cardiac enzymes. 2. Transient atrial fibrillation. She has had no previous history of cardiac arrhythmias. I suspect that the transient atrial fibrillation is due to the underlying sepsis syndrome and aspiration pneumonia. We will continue her on telemetry. We will check thyroid studies. We will rule her out for myocardial ischemia by serial enzymes. 3. Primary hypothyroidism. I will check a TSH and free T4, and adjust the dosage of levothyroxine as needed. 4. Vascular dementia. Aware. Given her clinical presentation and comorbid conditions, I believe that admission to the hospital is absolutely necessary to treat the underlying respiratory failure, aspiration pneumonia, and sepsis. To attempt to treat her as an outpatient would greatly increase the risk of adverse events, including . I anticipate that she will be in the hospital for at least 2 midnights and I will, therefore, place her in inpatient status. We will begin Lovenox 40 mg subcutaneously daily for DVT prophylaxis. I have had a long discussion with Apryl Carroll, her daughter, in the event of a cardiopulmonary arrest no heroic measures are to be undertaken. No Code Blue Level 1 has been established. cc: Lyndon Mccallum MD
[2018-07-31] MEDS: ZOSYN 3.375 GM in NS 50 ML IV SCH ×4 (00:29→21:11)
[2018-07-31] MEDS: LASIX IV SCH ×2 (06:27→09:53)
--- NOTE | 2018-07-31 07:37 | Diag Imaging Result Doc PS360 ---
EXAM: CHEST-PORTABLE INDICATION: dyspnea TECHNIQUE: One view COMPARISON: 07/30/2018 FINDINGS: Inspiration is suboptimal. Pulmonary venous congestion and ill-defined infiltrates suggesting edema are again noted and are essentially stable. There now appears to be a small right effusion. No other new consolidations are identified. Cardiac silhouette is stable. IMPRESSION: Development of a small right effusion. Stable chest, otherwise. Electronically signed by Álvaro Graham 07/31/2018 7:35 AM
--- NOTE | 2018-07-31 08:54 | PROGRESS NOTE ---
DATE: 07/31/2018 SUBJECTIVE: Ms Pérez was admitted to [facility] with acute respiratory failure with hypoxia secondary to aspiration pneumonia with sepsis syndrome. She is breathing more comfortably. She has been transitioned off BiPAP to nasal cannula oxygen. She continues with a persistent nonproductive cough and mild pleuritic chest pain. Her chest x-ray showed bilateral infiltrates and a small right pleural effusion. She denies any chest pain, palpitations, or anginal equivalents. Her troponins were mildly elevated. CPKs were also mildly elevated. She also was admitted to [facility] with acute congestive heart failure. She had transient atrial fibrillation. She is back in normal sinus rhythm. She has had good urine output of nearly 1300 mL. OBJECTIVE: Vital signs: Temperature 98.1 degrees, pulse 94, respirations 16, blood pressure 110/74. Cardiovascular: Regular rate and rhythm. Lungs: Crackles in the bases bilaterally. Abdomen: Soft, nontender, with active bowel sounds. Extremities: Trace ankle edema. ASSESSMENT AND PLAN: 1. Acute respiratory failure with hypoxia secondary to aspiration pneumonia with sepsis syndrome. We will continue to wean down on oxygen as tolerated and will continue broad-spectrum antibiotics including Zosyn pending blood cultures. 2. Acute congestive heart failure. She has had good diuresis. We will continue salt and fluid restricted diet and diurese her with Lasix. Her troponins are mildly elevated. Certainly they could be elevated in the setting of a [id number] elevation myocardial infarction or underlying sepsis. Given her overall health and underlying dementia, I believe that treating her conservatively would be the most reasonable course of action. Certainly, if she were to have any chest pain, we could use Ranexa or long-acting Imdur. 3. Primary hypothyroidism. Her free T4 was 1.84. I will reduce the levothyroxine to 25 mcg daily. cc: Lyndon Mccallum MD
[2018-07-31 09:10] LABS: AGAP 12; BUN 11 mg/dL (8-22); CALCIUM 8.3 mg/dL (8.8-10.2); CHLORIDE 87 mmol/L (98-107); COSMO 245; CREATININE 0.7 mg/dL (0.5-0.9); ESTIMATED GFR > 60; GLUCOSE 94 mg/dL (70-104); POTASSIUM 3.1 mmol/L (3.5-5.1); SODIUM 122 mmol/L (136-145); TCO2 23 mmol/L (25-35)
[2018-07-31] MEDS: LOVENOX SUBQ SCH (09:47)
[2018-07-31] MEDS: DUONEB (A & A) INH SCH ×3 (11:29→20:11)
[2018-08-01] MEDS: DUONEB (A & A) INH SCH ×6 (00:33→19:20)
[2018-08-01] MEDS: ZOSYN 3.375 GM in NS 50 ML IV SCH ×4 (05:45→19:47)
[2018-08-01] MEDS: SYNTHROID PO SCH (06:21)
[2018-08-01] MEDS: TYLENOL PO PRN ×2 (10:13→21:27)
[2018-08-01] MEDS: LASIX IV SCH (10:14)
[2018-08-01] MEDS: LOVENOX SUBQ SCH (10:14)
--- NOTE | 2018-08-01 16:01 | PROGRESS NOTE ---
DATE: 08/01/2018 SUBJECTIVE: Ms. Pérez is a patient of Dr. Kane Mccallum. She is doing better. Breathing better. OBJECTIVE: Vital signs: Temp 98.6 degrees, pulse 85, respirations 16, blood pressure 106/61. HEENT: Pupils are equal and round. Lungs: Clear in all lung brown. Cardiovascular: Regular rhythm and rate without murmur or S3. Abdomen: Soft. Skin: Warm and dry. Urine output 1200 mL LABORATORY: Blood sugar 110, 117, 154. Chest x-ray: Development of small right pleural effusion, stable otherwise. Lab from the reviewed. White count 17,710, hematocrit 33, platelet count 192,000. Sodium yesterday was 122, potassium 3.1, chloride 87, BUN 11, creatinine 0.7. Blood sugars 144, 117, 154. ASSESSMENT AND PLAN: 1. Acute respiratory failure with hypoxemia secondary to aspiration pneumonia with sepsis syndrome. She is doing much better. Continue supplemental O2 and getting IV Zosyn. Blood cultures pending. 2. Acute congestive heart failure. She has responded to diuresis. Her troponin was mildly elevated. Could not rule out a [id number] myocardial infarction, but she is doing better. 3. Hypothyroidism. Appears to be euthyroid. REVIEW OF ORDERS: She is on furosemide or Lasix 40 mg daily, Synthroid 25 mcg daily, Zosyn 3.375 g IV q.6. I think we ought to check her sodium again, electrolytes, and her CBC again in the morning. I will check a magnesium with that. cc: MD Lyndon Santos MD
[2018-08-02] MEDS: ZOSYN 3.375 GM in NS 50 ML IV SCH ×5 (02:13→21:05)
[2018-08-02] MEDS: DUONEB (A & A) INH SCH ×7 (05:20→23:30)
[2018-08-02] MEDS: SYNTHROID PO SCH (06:55)
[2018-08-02] MEDS: TYLENOL PO PRN ×2 (06:55→21:04)
[2018-08-02 07:59] LABS: ESTIMATED GFR > 60
[2018-08-02 08:18] LABS: AGAP 11; BUN 10 mg/dL (8-22); CALCIUM 8.7 mg/dL (8.8-10.2); CHLORIDE 83 mmol/L (98-107); COSMO 253; CREATININE 0.8 mg/dL (0.5-0.9); GLUCOSE 111 mg/dL (70-104); MAGNESIUM 1.6 mg/dL (1.5-2.7); POTASSIUM 2.9 mmol/L (3.5-5.1); SODIUM 126 mmol/L (136-145); TCO2 32 mmol/L (25-35)
[2018-08-02] MEDS ORDERED: KLOR-CON PO ONE (08:46)
--- NOTE | 2018-08-02 09:50 | Diag Imaging Result Doc PS360 ---
EXAM: CHEST-PORTABLE HISTORY: chf TECHNIQUE: One view COMPARISON: 07-31-18 FINDINGS: Poor inspiratory effort. No cardiomegaly. There are bilateral infiltrates. These are slightly less dense. Questionable small left effusion. IMPRESSION: Mild interval improvement. Electronically signed by Marbin Arce 08/02/2018 9:48 AM
[2018-08-02] MEDS: LASIX IV SCH (10:35)
[2018-08-02] MEDS: LOVENOX SUBQ SCH (10:36)
[2018-08-02] MEDS: ZOFRAN IV PRN ×2 (16:50→21:22)
--- NOTE | 2018-08-02 17:42 | PROGRESS NOTE ---
DATE: 08/02/2018 SUBJECTIVE: Mrs. Pérez was admitted to [facility] with acute respiratory failure with hypoxia secondary to aspiration pneumonia with sepsis. Clinically, she looks much better. She is breathing comfortably. O2 saturations are ranging from 98% to 99% on 2 L of oxygen per nasal cannula. She denies any persistent cough or pleuritic chest pain. Her repeat chest x-ray showed a small left pleural effusion. She also had acute congestive heart failure. As part of her workup for the acute congestive heart failure, we checked serial cardiac enzymes which were markedly elevated. We suspect that she had a [id number]-BS-[id number] elevation myocardial infarction. The family has opted to treat her conservatively. She denies any PND, orthopnea, or dyspnea with exertion. OBJECTIVE: Temperature 97.7 degrees, pulse 93, respiratory rate 15, BP 112/68. Cardiovascular: Regular rate and rhythm. Lungs: Clear. Abdomen: Soft, nontender, with active bowel sounds. Extremities: Without edema. ASSESSMENT AND PLAN: 1. Acute respiratory failure with hypoxia secondary to aspiration pneumonia and acute congestive heart failure secondary to suspected systolic dysfunction. We will continue to wean her off oxygen. I am going to check a room air O2 saturation and stop her oxygen if her oxygen level is greater than 90. We will continue broad-spectrum antibiotics, and I hope to transition her to oral medications. We will continue a salt- and fluid-restricted diet and gentle diuresis with Lasix. 2. Hypothyroidism. Her free T4 was elevated. I reduced the dosage of Synthroid 25 mcg daily. 3. We have consulted Physical Therapy for evaluation. She has significant debility. The family would like to pursue short-term rehabilitation and have requested [facility]. cc: Lyndon Mccallum MD
[2018-08-03] MEDS: DUONEB (A & A) INH SCH ×7 (01:28→23:30)
[2018-08-03] MEDS: ZOSYN 3.375 GM in NS 50 ML IV SCH ×4 (03:00→21:18)
[2018-08-03] MEDS: SYNTHROID PO SCH (06:47)
[2018-08-03] MEDS: LASIX IV SCH (08:59)
[2018-08-03] MEDS: LOVENOX SUBQ SCH (08:59)
--- NOTE | 2018-08-03 11:11 | EKG Report ---
Test Performed on : 07/30/2018 12:09:51 PM Test Reason : ED. NO ORDER IN MT Blood Pressure : / mmHG Vent. Rate : 094 BPM Atrial Rate : 094 BPM P-R Int : 148 ms QRS Dur : 086 ms QT Int : 426 ms P-R-T Axes : 000 -08 149 degrees QTc Int : 532 ms Normal sinus rhythm. Moderate voltage criteria for LVH, may be normal variant T wave abnormality, consider anterolateral ischemia Abnormal ECG When compared with ECG of 30-JUL-2018 12:08, (Unconfirmed) No significant change was found Unconfirmed Result
[2018-08-03] MEDS ORDERED: LASIX IV ONE (12:41)
--- NOTE | 2018-08-03 13:00 | PROGRESS NOTE ---
DATE: 08/03/2018 SUBJECTIVE: Mrs. Pérez was admitted to [facility] with acute respiratory failure with hypoxia secondary to aspiration pneumonia, and a new onset congestive heart failure. She is sitting up in a chair. She is breathing comfortably. She denies any chest pain, palpitations, or anginal equivalents. Her most recent chest x-ray demonstrated interval improvement in the bilateral infiltrates. We checked a room air O2 saturation today at rest, and it was 87%. They resumed O2 at 2 L per nasal cannula and her O2 saturation jumps at 98%. OBJECTIVE: She is afebrile. Vital signs are stable.CV: Regular rate and rhythm. Lungs: Clear with occasional crackles in the bases. Abdomen: Soft, nontender, with active bowel sounds. Extremities: Without edema. ASSESSMENT AND PLAN: 1. Acute respiratory failure with hypoxia secondary to aspiration pneumonia and acute congestive heart failure secondary to suspected systolic dysfunction. It appears that she will need oxygen at this time. Her O2 saturation was 87% on room air at rest. We will continue supplemental O2 at 2 L per nasal cannula. We will continue broad-spectrum antibiotics. I will give her an extra dosage of Lasix today. 2. Physical debility. We will continue physical therapy. We are awaiting a rehab bed at [facility]. cc: Lyndon Mccallum MD
[2018-08-03 19:40] VITALS: BP 96/61
[2018-08-04] MEDS: ZOSYN 3.375 GM in NS 50 ML IV SCH (03:02)
[2018-08-04] MEDS: DUONEB (A & A) INH SCH ×4 (03:25→15:55)
[2018-08-04 08:50] LABS: HEMATOCRIT 31.9 % (37.0-47.0); HEMOGLOBIN 10.9 g/dL (12.0-16.0); MCH 28.9 PG (27-31); MCHC 34.2 g/dL (33-37); MCV 84.6 FL (81-99); MPV 9.4 FL (7.4-10.4); RBC 3.77 XMIL (4.2-5.4); RDW 15.9 % (11.5-14.5); WBC 7.2 X1000 (4.8-10.8)
[2018-08-04] MEDS ORDERED: AUGMENTIN LIQUID PO SCH (09:00)
[2018-08-04] MEDS ORDERED: ASPIRIN PO SCH (09:00)
[2018-08-04] MEDS ORDERED: LASIX PO SCH (09:00)
[2018-08-04 09:08] LABS: CALCIUM 8.8 mg/dL (8.8-10.2); POTASSIUM 2.8 mmol/L (3.5-5.1)
[2018-08-04] MEDS: TYLENOL PO PRN (09:20)
[2018-08-04] MEDS: SYNTHROID PO SCH (09:20)
[2018-08-04] MEDS: LOVENOX SUBQ SCH (09:21)
--- NOTE | 2018-08-04 09:50 | DISCHARGE SUMMARY ---
ADMISSION DATE: 07/30/2018 DISCHARGE DATE: 08/04/2018 DISCHARGE DIAGNOSES: 1. Acute respiratory failure with hypoxia secondary to aspiration pneumonia. 2. Chronic respiratory failure with hypoxia. 3. Acute congestive heart failure secondary to suspected systolic dysfunction. 4. Transient atrial fibrillation. 5. Non ST-segment elevation myocardial infarction. 6. Primary hypothyroidism. 7. Vascular dementia. 8. Hyponatremia present on admission. DISCHARGE INSTRUCTIONS: 1. The patient will be transferred via ambulance to [facility]. 2. Activity as tolerated. We will consult Physical Therapy, Occupational Therapy, as well as Speech Therapy for swallowing evaluation. 3. Mechanical soft diet. 4. Discharge medications: DuoNeb nebulized every 6 hours for 10 days, levothyroxine 25 mcg daily, Lasix 20 mg daily, Augmentin liquid 600 mg per 5 mL, 5 mL b.i.d. for 10 days, aspirin 81 mg daily, Lasix 20 mg daily. DISCHARGE PHYSICAL EXAMINATION: General: This is an elderly, frail, 87-year-old, lady in no apparent distress. Vital Signs: She is afebrile. Vital signs are stable. Cardiovascular: Regular rate and rhythm. Lungs: Faint crackles in the bases bilaterally. No wheezing was appreciated. Abdomen: Soft, nontender, with active bowel sounds. Extremities: Without edema. HISTORY AND HOSPITAL COURSE: Mrs. Juanis Pérez is an 87-year-old lady who was admitted to [facility] with acute respiratory failure with hypoxia secondary to aspiration pneumonia. She was initially placed on BiPAP, as well as broad-spectrum antibiotics, including Zosyn and DuoNeb nebulizer treatments. She was gradually weaned off BiPAP, and weaned down to 2 L of O2 per nasal cannula. We checked a room air O2 saturation at rest on 08/03/2018, and it was 87%. O2 at 2 L per nasal cannula was resumed continuously with O2 saturations in the range of 96% to 98%. She defervesced. Her wheezing and cough essentially resolved. Chest x-ray showed trace infiltrates in the bases bilaterally. We will transition her to Augmentin liquid 600 mg per 5 mL, 5 mL b.i.d. for 10 days. She does have a history of primary hypothyroidism. We checked thyroid studies. Her free T4 was 1.84. We reduced the dosage of levothyroxine to 25 mcg daily. She was also admitted to [facility] with acute congestive heart failure. Her proBNP was greater than 10,000. She was placed on a salt and fluid restricted diet, and was aggressively diuresed with Lasix. She had a trace left pleural effusion at the time of discharge. She was breathing comfortably. We did check serial cardiac enzymes. She did appear to have a non ST- segment elevation RI. Given her history of vascular dementia and her overall health, the family did not want to pursue aggressive measures. She did have transient atrial fibrillation. She spontaneously converted. She had no further runs of atrial fibrillation. Mrs. Pérez does have a living will. In the event of a cardiopulmonary arrest, she does not want any heroic measures undertaken. A no code blue level 1 was established. She was noted to be hyponatremic on admission. Her serum sodium was 117. We felt she was volume overloaded. We did not feel that she had SIADH. We restricted her fluids, and her serum sodium increased to 126. cc: Lyndon Mccallum MD
== END 2018-08-04 18:00 | DRG 177 ==
LOC: SUPCPDRO → ED 09:02 → MERGE 13:58 → EDIPHOLD 13:58 → 3N 16:30
PROVIDERS: ADMIT Internal Medicine; ATTEND Internal Medicine
CPT/HCPCS: 51702; 71010; 71045; 73521; 73562; 80048; 80053; 81001; 82550; 82553; 82948; 83605; 83735; 83880; 84439; 84443; 84484; 85025; 85027; 85610; 85730; 87040; 93005; 94640; 94761; 97162; 97163; 97530; 99285; A9270; J1650; J1940; J2405; J2543; XXXXX

== ENCOUNTER 2018-08-11 13:29 | Inpatient (IN) ==
[2018-08-11] MEDS ORDERED: SALINE LOCK IV FLUID XX ONE (13:37)
[2018-08-11] MEDS ORDERED: SAMSCA PO ONE (14:04)
[2018-08-11] MEDS ORDERED: SODIUM CHLORIDE 0.9% INJ SCH (14:04)
[2018-08-11] MEDS: PROTONIX IV SCH (16:00)
[2018-08-11] MEDS ORDERED: CALMOSEPTINE OINTMENT TOP PRN (23:00)
[2018-08-12 04:50] LABS: URINE SOURCE CATH
[2018-08-12 04:58] LABS: BILIRUBIN URINE NEGATIVE (NEGATIVE); BLOOD URINE NEGATIVE (NEGATIVE); COLOR YELLOW; GLUCOSE URINE NEGATIVE (NEGATIVE); KETONE URINE NEGATIVE (NEGATIVE); LEUKOCYTES URINE NEGATIVE (NEGATIVE); NITRITE URINE NEGATIVE (NEGATIVE); PROTEIN URINE NEGATIVE (NEGATIVE); TURBIDITY URINE CLEAR (CLEAR); UR EPITHELIAL CELLS <10 /HPF (<10); URINE BACTERIA NEGATIVE /HPF; URINE RBC <10 /HPF (<10); URINE WBC <10 /HPF (<10); UROBILINOGEN URINE NORMAL (NORMAL)
[2018-08-12] MEDS: DUONEB (A & A) INH SCH ×4 (05:07→22:30)
[2018-08-12 06:48] LABS: HEMATOCRIT 26.1 % (37.0-47.0); HEMOGLOBIN 8.9 g/dL (12.0-16.0)
[2018-08-12 07:31] LABS: CALCIUM 8.8 mg/dL (8.8-10.2); CREATININE 1.2 mg/dL (0.5-0.9); POTASSIUM 4.4 mmol/L (3.5-5.1)
[2018-08-12] MEDS: SYNTHROID PO SCH (07:34)
[2018-08-12] MEDS ORDERED: SAMSCA PO ONE (08:44)
--- NOTE | 2018-08-12 09:29 | PROGRESS NOTE ---
DATE: 08/12/2018 SUBJECTIVE: Mrs. Pérez was admitted to [facility] with acute blood loss anemia secondary to upper gastrointestinal bleed. She has been tolerating a clear liquid diet without nausea, vomiting, or worsening abdominal pain. She has had no further episodes of coffee-ground emesis. Her hemoglobin and hematocrit have dropped from 10 and 31 to 8.9 and 26.1. Her daughters want to treat her as conservatively as possible, and do not want to put her through an EGD at this time. She also has a history of SIADH. We gave her a one time dosage of Samsca yesterday, and her serum sodium has increased from 116 to 122. OBJECTIVE: General: She is awake and easily arousable. She is had no seizure activity. Vital Signs: Temperature 97.2 degrees, pulse 92, respirations 24, and BP 124/61. CV: Regular rate and rhythm. Lungs: Clear. Abdomen: Mild epigastric tenderness to deep palpation. No rebound or guarding. LABORATORY: Various laboratory studies were obtained. The hemoglobin and hematocrit were 8.9 and 26.1. BMP demonstrated the following: Sodium 122, potassium 4.4, BUN 36 creatinine 1.2, and glucose 97. ASSESSMENT AND PLAN: 1. Acute blood loss anemia secondary to upper gastrointestinal bleed. We will continue pantoprazole 40 mg IV daily, and add Carafate slurry 1 g q.6 hours. I will advance her to a pureed diet. As long as she has no further episodes of nausea, vomiting or coffee ground emesis, I hope to be able to transition her to oral proton pump inhibitors. The family reiterated that they do not want to put her through any procedures like an EGD at this time. They simply want to treat her conservatively and keep her as comfortable as possible. 2. 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 I will re-dose her with Samsca 30 mg p.o. x1 dose, and recheck a BMP in the morning. cc: Lyndon Mccallum MD
[2018-08-12] MEDS: FOLIC ACID PO SCH (10:02)
[2018-08-12] MEDS ORDERED: TYLENOL PO PRN (11:24)
[2018-08-12] MEDS: PROTONIX IV SCH (13:24)
[2018-08-13] MEDS: DUONEB (A & A) INH SCH ×4 (05:54→22:35)
[2018-08-13] MEDS: SYNTHROID PO SCH (06:50)
[2018-08-13 07:28] LABS: HEMATOCRIT 24.9 % (37.0-47.0); HEMOGLOBIN 8.5 g/dL (12.0-16.0)
[2018-08-13 07:53] LABS: CALCIUM 8.5 mg/dL (8.8-10.2); CREATININE 0.9 mg/dL (0.5-0.9); POTASSIUM 4.4 mmol/L (3.5-5.1)
[2018-08-13] MEDS: FOLIC ACID PO SCH (10:12)
[2018-08-13] MEDS: PROTONIX PO SCH ×2 (10:12→20:20)
[2018-08-13] MEDS ORDERED: NS 500 ML IV SCH (11:00)
[2018-08-13] MEDS: CARAFATE LIQUID PO SCH ×2 (15:22→20:20)
--- NOTE | 2018-08-13 18:52 | PROGRESS NOTE ---
DATE: 08/13/2018 Mrs. Pérez was admitted to [facility] with acute blood loss anemia secondary to upper GI bleed. She denies any further reflux, sour brash, dysphagia, melena or hematemesis. Blood counts continue to trend downward. Her hemoglobin, hematocrit were 8.5 and 24.9 this morning. She was tolerating a pureed diet without nausea, vomiting, or abdominal pain. Serum sodium had increased to 131. Temperature 98.1 degrees, pulse 95, respirations 18, BP 106/60.CV: Regular rate and rhythm. Lungs: Clear. Abdomen: Soft, nontender, with active bowel sounds. ASSESSMENT AND PLAN: 1. Upper gastrointestinal bleed with acute blood loss anemia. I had a long discussion with her daughter Apryl Carroll. They still want to pursue conservative measures. Her blood counts continue to ooze downward. We will type, crossmatch and transfuse 2 units of packed red blood cells. I will transition her to pantoprazole 40 mg b.i.d. and Carafate slurry 1 g q.6 hours. If her blood counts remain stable we hope to arrange for transfer to [facility] tomorrow. cc: Lyndon Mccallum MD
[2018-08-14] MEDS: CARAFATE LIQUID PO SCH ×2 (03:37→10:34)
[2018-08-14] MEDS: DUONEB (A & A) INH SCH ×2 (05:42→10:57)
[2018-08-14] MEDS: SYNTHROID PO SCH (06:01)
[2018-08-14 06:50] LABS: HEMATOCRIT 35.9 % (37.0-47.0)
[2018-08-14 07:13] LABS: AGAP 9; BUN 15 mg/dL (8-22); CALCIUM 8.5 mg/dL (8.8-10.2); CHLORIDE 98 mmol/L (98-107); COSMO 267; CREATININE 0.7 mg/dL (0.5-0.9); ESTIMATED GFR > 60; GLUCOSE 97 mg/dL (70-104); POTASSIUM 3.9 mmol/L (3.5-5.1); SODIUM 133 mmol/L (136-145); TCO2 26 mmol/L (25-35)
[2018-08-14 07:35] VITALS: BP 123/79
[2018-08-14] MEDS: PROTONIX PO SCH (10:34)
[2018-08-14] MEDS: FOLIC ACID PO SCH (10:34)
--- NOTE | 2018-08-14 11:00 | DISCHARGE SUMMARY ---
ADMISSION DATE: 08/11/2018 DISCHARGE DATE: 08/14/2018 DISCHARGE DIAGNOSES: 1. Acute blood loss anemia secondary to upper gastrointestinal bleed. 2. Hyponatremia present on admission secondary to syndrome of inappropriate antidiuretic hormone. 3. Chronic respiratory failure with hypoxia on continuous home oxygen. 4. Chronic congestive heart failure secondary to systolic dysfunction. 5. Primary hypothyroidism. 6. Vascular dementia. 7. Acute urinary retention requiring Ibrahim catheter. DISCHARGE INSTRUCTIONS: 1. The patient will be transferred via ambulance to [facility] in order to undergo short-term rehab. 2. Activity as tolerated. 3. Low sodium diet with 1500 mL fluid restriction. MEDICATIONS: 1. Carafate slurry 1 g q. 6 hours. 2. DuoNeb nebulize q. 6 hours. 3. Folic acid 1 mg daily. 4. Levothyroxine 25 mcg daily. 5. Pantoprazole 40 mg daily. 6. Lasix 20 mg daily if she gains 2 pounds in 24 hours. DISCHARGE PHYSICAL EXAMINATION: General: This is an elderly, frail, 87-year-old lady in no apparent distress. Vital Signs: She is afebrile. Pulse 93, respirations 20, BP 123/79. CV: Regular rate and rhythm. Lungs: Clear. Abdomen: Soft, nontender, with active bowel sounds. HOSPITAL COURSE: Ms. Pérez was admitted to [facility] with acute blood loss anemia secondary to upper gastrointestinal bleed. Her hemoglobin and hematocrit were 10 and 31 on admission. She had increasing reflux, sour brash, and had an episode of coffee-ground emesis. The patient was placed on IV pantoprazole, and was started on a clear liquid diet. We followed her blood counts. Her blood counts trended down to a low of 8.5 and 24.9 on 08/13. She was transfused 2 units of packed red blood cells, and her hemoglobin and hematocrit were 12.0 and 35.9 on discharge. She had no further nausea, vomiting, or coffee-ground emesis. She was transitioned to oral pantoprazole 40 mg b.i.d. and Carafate slurry 1 g q. 6 hours. She will continue the pantoprazole and Carafate for a minimum of 2 months, and hopefully we would then be able to transition her off the Carafate. We advanced her to a pureed diet which she tolerated. We had her sit up and take small bites. She was able to take sips of liquids after each bite. We made the changes in her diet because of intermittent episodes of dysphagia to solids. In talking to Apryl Glen and Flako López, who are Ms. Pérez's daughters, they did not want any aggressive measures undertaken. They did not want to perform an EGD or any invasive procedure given their mother's overall health and age. 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 Her serum sodium was 116 on admission. We placed her on a salt and fluid-restricted diet. She was given 2 dosages of Samsca. Her serum sodium was 133 at discharge. She was asymptomatic with the hyponatremia. She had no altered mental status or seizure activity. She will need to be continued on a fluid and salt-restricted diet at rehab. I will have them recheck a serum sodium the first of the week. We will give her Samsca on a p.r.n. basis for episodes of asymptomatic hyponatremia. Ms. Pérez does have a Living Will. The family has asked that in the event of a cardiopulmonary arrest, that no heroic measures should be undertaken. A no code blue level 1 was established. She did have acute urinary retention during her hospitalization. A Ibrahim catheter was placed. We will initiate bladder training at rehab with the goal of discontinuing the Ibrahim. cc: Lyndon Mccallum MD
== END 2018-08-14 11:59 | DRG 378 ==
LOC: DIRADM 13:29 → 4N 13:57
PROVIDERS: ADMIT Internal Medicine; ATTEND Internal Medicine
CPT/HCPCS: 36430; 80048; 81001; 84134; 85014; 85018; 86850; 86900; 86901; 86920; 94640; 94761; A9270; C9113; J7040; P9016; S0164